=== PATIENT | male | born 1960 ===

== ENCOUNTER 2018-04-07 12:44 | Emergency (ER) | payer OTHER ==
[2018-04-07 13:07] VITALS: BMI 26.6
[2018-04-07 13:11] VITALS: RESP 18; TEMP 97.5
[2018-04-07] MEDS ORDERED: Oxycodone/Acetaminophen 5/325 mg Tab PO STA (14:03)
--- NOTE | 2018-04-07 14:05 | C.PDOC ---
History Of Present Illness 58 year old male presents to ED complaining of left lower back pain x3 weeks. Patient states the pain radiates to the left hip, left buttock, and left leg. Patient reports limited relief of symptoms when taking her over the counter nonsteroidal anti-inflammatory drugs. Denies weight loss, chest pain, abdominal pain, weakness, numbness. new onset L LOWER BACK PAIN X 3 WEEKS. RADIATION L HIP/BUTTOCK/LEG. NO ASSOC WEAKNESS, NUMB, ABD PAIN, CP, WT LOSS. LIMITED RELIEF W OTC NSAIDS. EXAM MOD DIST NONTOXIC ABD NEG BACK LIMITED FULL EXT DUE TO PAIN NONTEND NEURO NO FOCAL DEF REMAINDER NEG Time Seen by Provider: 04/07/18 13:42 Chief Complaint (Nursing): High Blood Pressure History Per: Patient History/Exam Limitations: no limitations Onset/Duration Of Symptoms: Days Current Symptoms Are (Timing): Still Present Past Medical History Reviewed: Historical Data, Nursing Documentation, Vital Signs Vital Signs: Last Vital Signs Temp 97.5 F L 04/07/18 13:08 Pulse 71 04/07/18 13:08 Resp 18 04/07/18 13:08 BP 191/104 H 04/07/18 13:08 Pulse Ox 97 04/07/18 13:08 - Medical History PMH: HTN Surgical History: No Surg Hx Family History: States: No Known Family Hx - Social History Hx Alcohol Use: No Hx Substance Use: No - Immunization History Hx Tetanus Toxoid Vaccination: No Hx Influenza Vaccination: No Hx Pneumococcal Vaccination: No Review Of Systems Except As Marked, All Systems Reviewed And Found Negative. Constitutional: Negative for: Fever, Chills, Weight loss Cardiovascular: Negative for: Chest Pain Gastrointestinal: Negative for: Nausea, Vomiting, Abdominal Pain Musculoskeletal: Positive for: Back Pain (left lower back pain x3 weeks that raidates to left hip/buttock/leg.) Neurological: Negative for: Weakness, Numbness Physical Exam - Physical Exam Appears: Non-toxic, No Acute Distress Skin: Warm, Dry Head: Atraumatic, Normacephalic Eye(s): bilateral: PERRL, EOMI Oral Mucosa: Moist Neck: Supple Chest: Symmetrical, No Deformity Cardiovascular: Rhythm Regular Respiratory: Normal Breath Sounds, No Rales, No Rhonchi, No Wheezing, Other (NARD) Gastrointestinal/Abdominal: Soft, No Tenderness, No Distention Back: Other (Limited extension due to pain. Nontender) Neurological/Psych: Oriented x3, Normal Speech, Normal Motor, Normal Sensation, Other (No focal deficits.) ED Course And Treatment O2 Sat by Pulse Oximetry: 97 (RA) Pulse Ox Interpretation: Normal Medical Decision Making Medical Decision Making: Plan: * Catapres * Decadron * Flexeril * Neurontin * Percocet * Toradol Disposition Counseled Patient/Family Regarding: Diagnosis, Need For Followup, Rx Given - Disposition Referrals: [facility] [Outside] [facility] [Outside] Disposition: HOME/ ROUTINE Disposition Time: 16:09 Condition: IMPROVED Prescriptions: Gabapentin [Neurontin] 300 mg PO TID #30 cap Ibuprofen [Motrin] 600 mg PO Q6 #30 tab Tramadol HCl [Ultram] 50 mg PO QID #20 tab Instructions: Sciatica (DC), High Blood Pressure (DC) Forms: [employer] (Israeli) Print Language: [id number] - Clinical Impression Clinical Impression: Sciatic leg pain, Hypertension - Scribe Statement The provider has reviewed the documentation as recorded by the Herno Sullivaned Provider Attestation: All medical record entries made by the Heron were at my direction and personally dictated by me. I have reviewed the chart and agree that the record accurately reflects my personal performance of the history, physical exam, medical decision making, and the department course for this patient. I have also personally directed, reviewed, and agree with the discharge instructions and disposition.
[2018-04-07] MEDS ORDERED: Oxycodone/Acetaminophen 5/325 mg Tab ONE (14:21)
[2018-04-07 16:08] VITALS: BP 139/81; PULSE 53
[2018-04-07 16:11] VITALS: O2SAT 97
== END 2018-04-07 16:33 | disposition home or self-care (01) ==
LOC: C.ER 12:44
DX: M54.30 Sciatica, unspecified side (principal); M79.606 Pain in leg, unspecified; I10 Essential (primary) hypertension
CPT/HCPCS: 96372; 99285; J1885; J8540

== ENCOUNTER 2018-04-14 11:29 | Emergency (ER) | payer OTHER ==
[2018-04-14 11:29] VITALS: BMI 26.6
--- NOTE | 2018-04-14 12:29 | C.PDOC ---
History Of Present Illness 58 year old male patient with hx of chronic back pain and HTN comes in for re- evaluation of left sided lower back pain that radiates to the left hip, left leg intermittently for x4 weeks. Patient reports pain is worse with movement. Patient was seen on 04/07/2018 where he received pain medication with no significant improvement. Patient denies known trauma, injury, fever, chills, abdominal pain, N/V, UTI sx, saddle anesthesia, dysuria or incontinence, denies new weakness, sensory or vascular deficits to B/L lEs. Ambulate to Ed for evaluation, not in any apparent distress.. Time Seen by Provider: 04/14/18 11:45 Chief Complaint (Nursing): Back Pain History Per: Patient History/Exam Limitations: no limitations Onset/Duration Of Symptoms: Days (x4 weeks), Intermittent Episodes Current Symptoms Are (Timing): Still Present Previous Symptoms: Back Pain Past Medical History Reviewed: Historical Data, Nursing Documentation, Vital Signs Vital Signs: Last Vital Signs Temp 98 F 04/14/18 11:46 Pulse 81 04/14/18 11:46 Resp 18 04/14/18 11:46 BP 174/101 H 04/14/18 11:46 Pulse Ox 96 04/14/18 11:46 - Medical History PMH: HTN Family History: States: No Known Family Hx - Social History Hx Alcohol Use: No Hx Substance Use: No - Immunization History Hx Tetanus Toxoid Vaccination: No Hx Influenza Vaccination: No Hx Pneumococcal Vaccination: No Review Of Systems Except As Marked, All Systems Reviewed And Found Negative. Constitutional: Negative for: Fever, Other (trauma/injury to lower back) Gastrointestinal: Negative for: Abdominal Pain Genitourinary: Negative for: Dysuria, Frequency, Incontinence, Hematuria Musculoskeletal: Positive for: Back Pain (left-sided lower back pain radiating to left hip and left buttocks) Physical Exam - Physical Exam Appears: Well, Non-toxic, No Acute Distress Skin: Normal Color, Warm, Dry, No Rash, No Ecchymosis Head: Normacephalic Eye(s): bilateral: PERRL Oral Mucosa: Moist Throat: No Erythema Neck: Trachea Midline, No Midline Cervical Tenderness, No Paracervical Tenderness, No Supple Chest: Symmetrical, No Deformity, No Tenderness Cardiovascular: Rhythm Regular Respiratory: No Decreased Breath Sounds, No Accessory Muscle Use, No Stridor, No Wheezing Gastrointestinal/Abdominal: Soft, No Tenderness, No Distention, No Guarding, No Rebound Back: No Vertebral Tenderness, Paraspinal Tenderness (left extend down to left glutteus, lateral left thigh. No edema, no erythema, no palpable defomrit.) Extremity: Normal ROM (x4), No Tenderness, No Pedal Edema, No Calf Tenderness, Capillary Refill (<2 sec), No Deformity, No Swelling Extremity: Bilateral: Atraumatic, Normal Color And Temperature DTR: Knee (R): 2+, Knee (L): 2+, Ankle (R): 2+, Ankle (L): 2+ Neurological/Psych: Oriented x3, Normal Speech, Normal Motor, Normal Sensation, Normal Reflexes Gait: Steady ED Course And Treatment O2 Sat by Pulse Oximetry: 96 (RA) Pulse Ox Interpretation: Normal Progress Note: Plans: -- XR LS Spine. -- UA. Reassess: On re-eval, pt is afebrile, hemodynamically stable. Non-toxic. Ambulatory in ED with stable gait. head: AT/NC. Neck: Supple, (-) JVD. Abd: Soft, non-tender. back: (-) CVA tenderness. Neurologically intact. L-spine review (+) DJD with stenosis L4-S1, no acute fx or dislocation. UA- normal study. Pt has clinical findings c/w left sided lumbar radiculopathy. Pt advised and ref. to f/u with PMD, PM in 2-3 days for re-eavl. return if any new chnages. Disposition Counseled Patient/Family Regarding: Diagnosis, Need For Followup, Rx Given - Disposition Referrals: [facility] [Outside] Disposition: HOME/ ROUTINE Disposition Time: 12:37 Condition: STABLE Additional Instructions: Continue pain medication as prescribed week ago take new medication as prescribed Light duty, avoid heavy lifting, any physical activity for 1 week!!! Follow up with PMD in 2-3 days for re-evaluation. return if any new changes. Continuar el medicamento para el dolor brissa se prescribe hace jovanny semana garrett nuevos medicamentos segn lo prescrito Trabajo liviano, evite levantar objetos pesados, cualquier actividad fsica roberto 1 semana. Seguimiento con PMD en 2-3 hammer para la reevaluacin. Vuelve si hay cambios nuevos. Prescriptions: Prednisone [Deltasone] 60 mg PO DAILY #9 tablet Instructions: Radiculopathy (DC), High Blood Pressure in Adults Forms: [employer] (Spanish), Work Excuse Print Language: YORUBA - Clinical Impression Clinical Impression: Lumbar radiculopathy, Hypertension - PA / PONDMAN / Resident Statement / has reviewed & agrees with the documentation as recorded. - Scribe Statement The provider has reviewed the documentation as recorded by the Heron [place] Do All medical record entries made by the Heron were at my direction and personally dictated by me. I have reviewed the chart and agree that the record accurately reflects my personal performance of the history, physical exam, medical decision making, and the department course for this patient. I have also personally directed, reviewed, and agree with the discharge instructions and disposition.
[2018-04-14 12:45] LABS: SQUAMOUS EPITHIAL < 1 /hpf (0-5); URINE BILIRUBIN NEGATIVE (NEGATIVE); URINE BLOOD NEGATIVE (NEGATIVE); URINE CLARITY Clear (Clear); URINE COLOR Yellow (YELLOW); URINE GLUCOSE (UA) 3+ mg/dL (Normal); URINE LEUKOCYTE ESTERASE NEG Leu/uL (Negative); URINE PROTEIN NEGATIVE (NEGATIVE); URINE UROBILINOGEN NORMAL mg/dL (0.2-1.0)
[2018-04-14 13:24] VITALS: BP 162/96; PULSE 72; TEMP 97.9; O2SAT 98
[2018-04-14 13:28] VITALS: RESP 18
--- NOTE | 2018-04-14 15:17 | RAD ---
Lumbar spine three views HISTORY: Pain. COMPARISON: None available. FINDINGS: Mild anterolisthesis of the distal sacrum in relationship to the coccyx. Clinical correlation. Correlation with MRI may be helpful Mild retrolisthesis of L3 on L4. Mild retrolisthesis of L4 on L5 with disc space narrowing and endplate sclerosis. Additional multilevel disc space narrowing with endplate sclerosis. . Mild superior endplate concavities of the L3 and L4 vertebral bodies. Multilevel anterior and paravertebral osteophyte formation. Facet hypertrophy and sclerosis. Multilevel posterior disc osteophyte complexes most prominent at the L5-S1 level. Aortic atherosclerotic calcification noted. Impression 1. Mild anterolisthesis of the distal sacrum in relationship to the coccyx. Clinical correlation. Correlation with MRI may be helpful. 2. Mild retrolisthesis of L3 on L4. Mild retrolisthesis of L4 on L5 with disc space narrowing and endplate sclerosis. Additional multilevel disc space narrowing with endplate sclerosis. 3. Mild superior endplate concavities of the L3 and L4 vertebral bodies. 4. Multilevel anterior and paravertebral osteophyte formation. Facet hypertrophy and sclerosis. 5. Multilevel posterior disc osteophyte complexes most prominent at the L5-S1 level. If pain persists, consider MRI.
== END 2018-04-14 13:28 | disposition home or self-care (01) ==
LOC: C.ER 11:29
DX: M54.16 Radiculopathy, lumbar region (principal); I10 Essential (primary) hypertension
CPT/HCPCS: 72100; 81001; 96372; 99283; J2930

== ENCOUNTER 2018-06-20 14:24 | Emergency (ER) | payer OTHER ==
[2018-06-20 14:24] VITALS: BMI 26.6
[2018-06-20 14:45] VITALS: BP 171/92; PULSE 73; RESP 20; TEMP 98.1; O2SAT 98
--- NOTE | 2018-06-20 15:29 | C.PDOC ---
History Of Present Illness 58 year old male presents to the emergency department with complaints of positional vertigo this morning. Patient states that he sat up from his bed and felt dizzy, so he decided to lie down. When he got up for a second time a while later, he reported feeling the same dizziness but much more mild. Patient denies other complaints. Time Seen by Provider: 06/20/18 15:21 Chief Complaint (Nursing): Dizziness/Lightheaded History Per: Patient History/Exam Limitations: no limitations Onset/Duration Of Symptoms: Hrs Current Symptoms Are (Timing): Still Present Activity At Onset Of Symptoms: Other (sitting up) Fall Associated With With Symptoms: No Past Medical History Reviewed: Historical Data, Nursing Documentation, Vital Signs Vital Signs: Last Vital Signs Temp 98.1 F 06/20/18 14:43 Pulse 73 06/20/18 14:43 Resp 20 06/20/18 14:43 BP 171/92 H 06/20/18 14:43 Pulse Ox 98 06/20/18 14:43 - Medical History PMH: HTN (DENIED ON 06/20/2018) Surgical History: No Surg Hx Family History: States: No Known Family Hx - Social History Hx Alcohol Use: No Hx Substance Use: No - Immunization History Hx Tetanus Toxoid Vaccination: No Hx Influenza Vaccination: No Hx Pneumococcal Vaccination: No Review Of Systems Except As Marked, All Systems Reviewed And Found Negative. Constitutional: Negative for: Fever, Chills Gastrointestinal: Negative for: Nausea, Vomiting Neurological: Positive for: Dizziness Physical Exam - Physical Exam Appears: Well, Non-toxic, No Acute Distress Skin: Normal Color, Warm, Dry Head: Atraumatic, Tenderness Eye(s): bilateral: Normal Inspection, PERRL, EOMI Nose: Other (increased nasal passage inflammation, kissing turbinates) Oral Mucosa: Moist Neck: Normal, Supple Chest: Symmetrical, No Tenderness Cardiovascular: Rhythm Regular, No Murmur Respiratory: Normal Breath Sounds, No Rales, No Rhonchi, No Wheezing Gastrointestinal/Abdominal: Soft, No Tenderness, No Guarding, No Rebound Extremity: Normal ROM Extremity: Bilateral: Atraumatic, Normal Color And Temperature Neurological/Psych: Oriented x3, Normal Speech, Normal Cognition ED Course And Treatment O2 Sat by Pulse Oximetry: 98 (RA) Pulse Ox Interpretation: Normal Medical Decision Making Medical Decision Making: sinus inflammation positional mild vertigo LOW susp of CVA flonase, NSAIDS Plan: Motrin 600mg PO Sudafed 30mg PO Disposition Doctor Will See Patient In The: Office Counseled Patient/Family Regarding: Studies Performed, Diagnosis - Disposition Referrals: [facility] [Outside] [facility] [Outside] [facility] [Outside] [facility] [Outside] Disposition: HOME/ ROUTINE Disposition Time: 15:36 Condition: GOOD Additional Instructions: ibuprofeno 400-600 mg cada 6 horas para dolor de tracy Pseudafed 30 mg cada 6 horas- se baja el inflammacio'n de las passajes nasales Flonase- espray nasal esteroideal- se baja inflammaci'n de las pasajes nasales 1 espray cada lado del nariz cada 12 horas Sigue con la [facility] brissa necessario Instructions: Vertigo (a Type of Dizziness) (DC), Sinus Headache (DC) Forms: [facility] (Peruvian) Print Language: MALAY - Clinical Impression Clinical Impression: Positional lightheadedness, Acute inflammation of sinus - Scribe Statement The provider has reviewed the documentation as recorded by the Scribe (N[facility] Home) Provider Attestation: All medical record entries made by the Scribe were at my direction and personally dictated by me. I have reviewed the chart and agree that the record accurately reflects my personal performance of the history, physical exam, medical decision making, and the department course for this patient. I have also personally directed, reviewed, and agree with the discharge instructions and disposition.
== END 2018-06-20 15:58 | disposition home or self-care (01) ==
LOC: C.ER 14:24
DX: R42 Dizziness and giddiness (principal); J01.90 Acute sinusitis, unspecified